=== PATIENT | female | born 1975 | race African-American/Black ===

== ENCOUNTER 2017-07-26 15:12 | Inpatient (IN) | payer OTHER ==
[~2017-07-26] VITALS: Ht 170.2 cm; Wt 168.5 kg
[~2017-07-26 15:12] MED LIST: IOHEXOL-300 100 ML BOTTLE ONE; SODIUM CHLORIDE 0.9% 10ML VIAL ONE
[2017-07-26] MEDS ORDERED: FERR325T6 PO (15:32)
[2017-07-26] MEDS ORDERED: LISI-604 PO (15:32)
[2017-07-26] MEDS ORDERED: NPH,100V SQ (15:32)
[2017-07-26] MEDS ORDERED: NIFE30TA94 PO (15:32)
[2017-07-26] MEDS ORDERED: FURO40TA5 PO (15:32)
[2017-07-26] MEDS ORDERED: ASPI-1159 PO (15:32)
[2017-07-26] MEDS ORDERED: GABA-531 PO (15:32)
[2017-07-26] MEDS ORDERED: INSU100V3 SUBCUT (15:32)
[2017-07-26] MEDS ORDERED: ALBUTEROL (0.083%) 2.5MG/3ML NEB HHN STA (16:58)
[2017-07-26] MEDS ORDERED: IPRATROPIUM BROMIDE (0.02%) 0.5MG/2.5ML NEB HHN STA (16:58)
[2017-07-26 17:39] LABS: BASOPHILS % 0.3 % (0.0-2.0); EOSINOPHILS % 1.2 % (0.0-5.0); HEMATOCRIT. 35.6 % (36.0-48.0); HEMOGLOBIN. 11.8 g/dL (12.0-16.0); LYMPHOCYTES % 26.3 % (20.0-50.0); MEAN CORPUSCULAR HEMOGLOBIN 27.3 pg (28.0-32.0); MEAN CORPUSCULAR VOLUME 82.2 fL (81.0-99.0); MONOCYTES % 4.9 % (2.0-8.0); NEUTROPHILS % 67.3 % (40.0-76.0); PLATELET 303 x1000/uL (130-400); RED BLOOD CELL COUNT 4.33 mill/uL (4.2-5.4); RED CELL DISTRIBUTION WIDTH 14.2 % (11.6-14.6)
[2017-07-26 17:51] LABS: CARBON DIOXIDE 27 mEq/L (21-32); CHLORIDE 107 mEq/L (98-107)
[2017-07-26 17:53] LABS: HCG SCREEN NEGATIVE
[2017-07-26 17:55] LABS: TROPONIN I < 0.02 ng/mL (0.00-0.04)
[2017-07-27 01:50] VITALS: BP 160/71
[2017-07-27] MEDS ORDERED: MORPHINE SULFATE 4 MG/ML CPJ (NOT FOR IM USE) IV PRN (04:00)
[2017-07-27] MEDS ORDERED: DEXTROSE 50% WATER 50ML SYRINGE IV PRN (05:00)
[2017-07-27] MEDS ORDERED: ALBUTEROL (0.083%) 2.5MG/3ML NEB HHN SCH (06:00)
[2017-07-27] MEDS: BLOOD SUGAR DIAGNOSTIC STRIP TEST SCH ×3 (07:08→18:35)
[2017-07-27] MEDS: INSULIN LISPRO 100 UNITS/ML SUBCUT SCH ×3 (07:09→18:35)
[2017-07-27 08:00] VITALS: BP 121/56
[2017-07-27] MEDS ORDERED: LISINOPRIL 20MG TABLET PO SCH (09:00)
[2017-07-27 09:19] LABS: BASOPHILS % 0.3 % (0.0-2.0); EOSINOPHILS % 0.8 % (0.0-5.0); HEMATOCRIT. 33.9 % (36.0-48.0); HEMOGLOBIN. 11.2 g/dL (12.0-16.0); LYMPHOCYTES % 21.6 % (20.0-50.0); MEAN CORPUSCULAR HEMOGLOBIN 27.3 pg (28.0-32.0); MEAN CORPUSCULAR VOLUME 82.6 fL (81.0-99.0); MEAN PLATELET VOLUME 9.3 fl (7.4-10.4); MONOCYTES % 5.1 % (2.0-8.0); NEUTROPHILS % 72.2 % (40.0-76.0); PLATELET 269 x1000/uL (130-400); RED CELL DISTRIBUTION WIDTH 14.2 % (11.6-14.6)
[2017-07-27] MEDS: FUROSEMIDE 40MG/4ML VIAL IVP SCH ×2 (09:27→18:41)
[2017-07-27 09:28] LABS: PARTIAL THROMBOPLASTIN TIME 32.3 sec (23.4-31.0); PROTHROMBIN TIME 10.7 sec (9.4-11.6)
[2017-07-27 10:00] LABS: CARBON DIOXIDE 25 mEq/L (21-32); CHLORIDE 108 mEq/L (98-107)
[2017-07-27 12:41] VITALS: BP 100/58
[2017-07-27] MEDS ORDERED: ACETAMINOPHEN 325MG TABLET PO PRN (14:00)
[2017-07-27] MEDS ORDERED: ASPIRIN 81MG EC TABLET PO SCH (14:30)
[2017-07-27] MEDS ORDERED: REGADENOSON 0.4 MG/5 ML IV ONE (14:30)
[2017-07-27] MEDS ORDERED: CLONIDINE 0.1MG TABLET PO PRN (14:30)
[2017-07-27 15:06] LABS: *AMPHETAMINES SCREEN URINE NEGATIVE (NEGATIVE); *BARBITURATES SCREEN URINE NEGATIVE (NEGATIVE); *BENZODIAZEPINES SCREEN URINE NEGATIVE (NEGATIVE); *COCAINE SCREEN URINE NEGATIVE (NEGATIVE); CANNABINOID URINE SCREEN NEGATIVE (NEGATIVE); METHADONE URINE SCREEN NEGATIVE (NEGATIVE); OPIATES URINE SCREEN NEGATIVE (NEGATIVE); PHENCYCLIDINE URINE SCREEN NEGATIVE (NEGATIVE)
[2017-07-27 16:39] VITALS: BP 145/66
== END 2017-07-27 19:35 | disposition left against medical advice (07) | DRG 194 ==
LOC: ER 15:24 → 5WST 21:46 → ENRESERV 23:46
PROVIDERS: ADMIT Internal Medicine; ATTEND Internal Medicine
DX: I13.0 Hypertensive heart and chronic kidney disease with heart failure and stage 1 through stage 4 chronic kidney disease, or unspecified chronic kidney disease (principal); E11.22 Type 2 diabetes mellitus with diabetic chronic kidney disease; E11.42 Type 2 diabetes mellitus with diabetic polyneuropathy; I50.9 Heart failure, unspecified; Z90.49 Acquired absence of other specified parts of digestive tract; E66.01 Morbid (severe) obesity due to excess calories; N18.9 Chronic kidney disease, unspecified; Z53.21 Procedure and treatment not carried out due to patient leaving prior to being seen by health care provider; E78.00 Pure hypercholesterolemia, unspecified; Z79.4 Long term (current) use of insulin; Z68.43 Body mass index [BMI] 50.0-59.9, adult; Z79.899 Other long term (current) drug therapy; E83.51 Hypocalcemia
CPT/HCPCS: 36415; 71010; 74177; 76770; 76830; 76856; 80053; 80305; 82570; 82962; 83605; 83690; 83880; 84156; 84484; 84703; 85025; 85610; 85730; 87040; 87086; 93005; 93970; 94640; 99285; A4216; J1940; J2270; J7611; Q9967